=== PATIENT | male | born 1980 | race Caucasian/White ===

== ENCOUNTER 2023-02-09 20:36 | Emergency (ER) | payer MEDICAID, SELFPAY ==
[2023-02-09 20:38] VITALS: BP 155/94; PULSE 93; RESP 18; TEMP 36.7; O2SAT 98; BMI 25.0
--- NOTE | 2023-02-09 20:56 | XR_ITS ---
PROCEDURE INFORMATION: Exam: XR Left Wrist Exam date and time: 02/09/2023 8:50 PM Age: 42 years old Clinical indication: Pain; Wrist; Left TECHNIQUE: Imaging protocol: Radiologic exam of the left wrist. Views: 3 or more views. COMPARISON: No relevant prior studies available. FINDINGS: Bones/joints: No evidence of acute fracture or dislocation. No erosive disease. No significant degenerative change within the wrist. 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 Soft tissues: Normal. IMPRESSION: No acute bony abnormality. No significant arthropathy in the wrist.
--- NOTE | 2023-02-09 21:40 | HMH.EDEXTP ---
Discharge Plan Disposition Patient Disposition: Home, Self-Care Prescriptions Prescriptions: New ibuprofen 600 mg tablet 600 mg PO Q6H PRN (Reason: pain) Qty: 40 0RF acetaminophen [Tylenol 8 Hour] 650 mg tablet extended release 650 mg PO Q8H PRN (Reason: fever or pain) Qty: 40 0RF Referrals Follow up/Referrals: Lo Fernández [Primary Care Provider] - See instructions Activity Restrictions/Add. Instructions Additional Instructions/Restrictions: Wear the left wrist splint at all times. Follow-up with your primary care doctor as an outpatient Clinical Impressions Clinical Impression: Left wrist tendinitis Discharge ED Provider: Jenna Danielson Extremity Problem HPI General Chief complaint: Extremity Injury, Upper Stated complaint: [id number] left wrist pain,home accident Time Seen by Provider: 02/09/23 20:45 Mode of Arrival: Ambulatory Source of Information: Patient Limitations: No Limitations Description of Symptoms (Recalled from ER Triage Doc. by RN): Pt arrives to ED with c/o intermittent left wrist pain that started 2-3 days ago. Pt stated he has taken ibuprofen and tylenol, but pain has worsened today. Denies trauma. History of Present Illness HPI Narrative: Patient is a 42-year-old male who is here secondary to left wrist pain. 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 He stated the pain started last week and is gotten progressively worse. He wanted to make sure there was no fracture. Palpation movement makes it worse and rest makes it better MD Complaint: extremity pain Onset (ago): week(s) Consistency: constant Location: left Severity scale (1-10): 6 Quality: stabbing and sharp Radiation: distal Relieving factors: nothing Exacerbating factors: range of motion and palpation Associated symptoms: denies other symptoms Related Data Previous Rx's Medication Instructions Recorded acetaminophen 650 mg 650 mg PO Q8H PRN fever or pain 02/09/23 tablet,extended release (Tylenol 8 #40 tabs Hour) ibuprofen 600 mg tablet 600 mg PO Q6H PRN pain #40 tabs 02/09/23 Allergies Allergy/AdvReac Type Severity Reaction Status Date / Time ASA (aspirin) Allergy Mild I-HIVES Uncoded 09/21/17 15:13 PFSH PFS Disclaimer: The information contained in this section may have been updated after the patient was seen, as this information can be updated by other users. Social History Smoking Status: Current every day smoker alcohol intake: never current occupational status: employed Travel in the last 8 weeks: None ROS Obtained: Yes All systems reviewed & no additional complaints except as documented Musculoskeletal Musculoskeletal: Reports arthralgias (Left wrist pain) Physical Exam General General appearance: alert and in distress Head Head exam: atraumatic, normocephalic and normal inspection Eye Eye exam: Present normal appearance, PERRL and EOMI; Absent scleral icterus or conjunctival redness ENT ENT exam: Present normal exam, normal oropharynx and mucous membranes moist Neck Neck exam: Present normal inspection, full ROM and trachea midline Chest Chest inspection: Present normal inspection and symmetric chest wall rise Respiratory Respiratory exam: Present normal lung sounds bilaterally Cardiovascular Cardiovascular exam: Present regular rate, normal rhythm, normal heart sounds, +S1 and +S2 Abdominal Exam Abdominal exam: Present soft and normal bowel sounds; Absent distention, tenderness, guarding, rebound or rigidity Extremities Exam Extremities exam: Present normal inspection, tenderness (Left wrist diffuse tenderness mostly on the ulnar styloid and lateral aspect the wrist. Good range of motion. Pulses and neurovascular intact) and normal capillary refill; Absent full ROM, edema, joint swelling, calf tenderness, clubbing or cyanosis Back Exam Back exam: Present normal inspection and full ROM; Absent tenderness, CVA tenderness (R) or
[2023-02-09 21:41] VITALS: BP 151/74; PULSE 90; RESP 18; TEMP 36.7; O2SAT 98
== END 2023-02-09 21:43 | disposition home or self-care (01) ==
PROVIDERS: Emergency Provider Emergency Medicine; PCP Family Medicine
DX: M67.834 Other specified disorders of tendon, left wrist (principal); X50.3XXA Overexertion from repetitive movements, initial encounter; F17.200 Nicotine dependence, unspecified, uncomplicated
CPT/HCPCS: 73110; 99283; 99284

== ENCOUNTER 2023-03-25 13:17 | Emergency (ER) | payer MEDICAID, SELFPAY ==
[2023-03-25 13:20] VITALS: BP 157/94; PULSE 88; RESP 20; TEMP 36.7; O2SAT 98; BMI 25.9
--- NOTE | 2023-03-25 13:22 | XR_ITS ---
FINAL REPORT CLINICAL HISTORY: fall, lt lower leg pain COMPARISON: None FINDINGS: 2 views of the left tibia/fibula were obtained. There is no acute fracture or dislocation. The joint spaces are intact. There is no soft tissue abnormality. IMPRESSION: No acute fracture Reviewed, Interpreted and Dictated by Karl Danielle MD Transcribed by Cande Espinoza Authenticated and [facility]
--- NOTE | 2023-03-25 13:40 | EXP.UTC ---
Discharge Plan Disposition Patient Disposition: Home, Self-Care Condition: Good Referrals Follow up/Referrals: Sebastien Vasquez JR, MD [Physician] - See instructions Lo Fernández [Primary Care Provider] - See instructions Activity Restrictions/Add. Instructions Additional Instructions/Restrictions: Rest the extremity, apply ice for 15 minutes as tolerated three or four times per day, Wear the neil wrap for compression, Elevate the extremity as tolerated while you are resting. Follow up with Dr. Vasquez (orthopedics) if you continue to have symptoms. I put in a referral but you need to call his office and schedule an appointment. Follow up with your regular doctor. GO TO THE ER FOR ANY WORSENING SYMPTOMS Clinical Impressions Clinical Impression: Contusion of leg, left, Left leg pain Instructions Patient Instructions: How to Use Crutches, DI for Contusion Discharge ED Provider: Alirio Adams [facility] General Stated complaint: Fall 03/24 LT leg pain Mode of Arrival: Ambulatory Source of Information: Patient Limitations: No Limitations Time Seen by Provider: 03/25/23 13:40 HEENT Symptoms (Recalled from RN notes): No Resp Symptoms (Recalled from RN notes): No Skin Symptoms (Recalled from RN notes): No MS Symptoms (Recalled from RN notes): Yes Functional Status (Recalled from RN notes): WNL History of Present Illness Provider Complaint: PATIENT C/O PAIN TO LEFT LOWER LEG AFTER FALLING YESTERDAY EVENING AND INJURING IT. KNOT NOTED BELOW KNEE. HE STATES PAIN RADIATES DOWN LEG Related Data Allergies Allergy/AdvReac Type Severity Reaction Status Date / Time aspirin Allergy Verified 03/25/23 13:30 ceftriaxone [From Rocephin] Allergy Verified 03/25/23 13:30 Worker's Comp Is this a Worker's Comp case?: No [facility] Disclaimer: The information contained in this section may have been updated after the patient was seen, as this information can be updated by other users. Medical History Anxiety Asthma Hypertension Tuberculosis Social History Smoking Status: Current every day smoker alcohol intake: never current occupational status: employed Travel in the last 8 weeks: None ROS Obtained: Yes All systems reviewed & no additional complaints except as documented Constitutional Constitutional: Denies chills and Denies fever(s) Eyes Eyes: Denies eye discharge ENT Ears, Nose, Mouth, and Throat: Denies dizziness, Denies otalgia and Denies sore throat Cardiovascular Cardiovascular: Denies chest pain Respiratory Respiratory: Denies shortness of breath, Denies chest congestion, Denies cough, Denies stridor and Denies wheezing Gastrointestinal Gastrointestingal: Denies nausea or vomiting Musculoskeletal Musculoskeletal: Reports as per HPI Integumentary/Breasts Skin/Breast: Reports as per HPI Neurologic Neurologic: Denies dizziness and Denies paresthesias Allergic/Immunologic Allergic/Immunologic: Denies wheezing Physical Exam General General appearance: alert and in no apparent distress Head Head exam: atraumatic, normocephalic and normal inspection Eye Eye exam: Present normal appearance, PERRL and EOMI ENT ENT exam: Present normal exam, normal oropharynx, mucous membranes moist, TM's normal bilaterally and normal external ear exam Neck Neck exam: Present normal inspection, full ROM and trachea midline; Absent meningismus or lymphadenopathy Chest Chest inspection: Present normal inspection and symmetric chest wall rise; Absent tenderness Respiratory Respiratory exam: Present normal lung sounds bilaterally; Absent respiratory distress Cardiovascular Cardiovascular exam: Present regular rate and normal rhythm; Absent JVD Abdominal Exam Abdominal exam: Present soft and normal bowel sounds; Absent distention, tenderness or guarding Extremities Exam Extremities exam: Present normal inspection, full RO
[2023-03-25 14:00] VITALS: BP 157/94; PULSE 88; RESP 20; TEMP 36.7; O2SAT 98
== END 2023-03-25 14:09 | disposition home or self-care (01) ==
PROVIDERS: Emergency Provider Nurse Practitioner Family; PCP Family Medicine
DX: M79.605 Pain in left leg (principal); S80.12XA Contusion of left lower leg, initial encounter; F17.210 Nicotine dependence, cigarettes, uncomplicated; I10 Essential (primary) hypertension; J45.909 Unspecified asthma, uncomplicated; F41.9 Anxiety disorder, unspecified; W19.XXXA Unspecified fall, initial encounter
CPT/HCPCS: 73590; 99204; 99212; G0463

== ENCOUNTER 2023-10-22 11:19 | Emergency (ER) | payer OTHER, MEDICAID, SELFPAY ==
[2023-10-22 11:30] VITALS: BP 141/90; PULSE 80; RESP 19; TEMP 36.6; O2SAT 100; BMI 30.1
--- NOTE | 2023-10-22 11:36 | EXP.UTC ---
Discharge Plan Disposition Patient Disposition: Home, Self-Care Condition: Good Prescriptions Prescriptions: New meknykaiccqyfzi-onzfmsnsd-PN [Bromfed DM] 2-30-10 mg/5 mL syrup 5 ml PO Q4H PRN (Reason: Cough) Qty: 120 0RF ondansetron 8 mg tablet,disintegrating 8 mg PO TID PRN (Reason: Nausea) Qty: 30 0RF Referrals Follow up/Referrals: Lo Fernández [Primary Care Provider] - See instructions Clinical Impressions Clinical Impression: Close exposure to 2019-nCoV Stand Alone Forms Stand Alone Forms: Work/School Release Instructions Patient Instructions: DI for COVID-19 (Suspected or Confirmed ) Discharge ED Provider: Linda Angel [facility] [place] General Stated complaint: weak, fever, chills Time Seen by Provider: 10/22/23 11:40 History of Present Illness Provider Complaint: Patient had acute onset of weakness, fever, body aches and chills around 1 am. He felt fine when he went to work then felt like he got hit by a truck. His fiance has COVID19. No vomiting or diarrhea. Onset (ago): hour(s) (10) Related Data Previous Rx's Medication Instructions Recorded inzuqkhpufrtvyf-uxdqlasdajdqpeg-FJ 5 ml PO Q4H PRN Cough #120 mL 10/22/23 2 mg-30 mg-10 mg/5 mL oral syrup (Bromfed DM) ondansetron 8 mg disintegrating 8 mg PO TID PRN Nausea #30 tabs 10/22/23 tablet Allergies Allergy/AdvReac Type Severity Reaction Status Date / Time aspirin Allergy Verified 03/25/23 13:30 ceftriaxone [From Rocephin] Allergy Verified 03/25/23 13:30 [facility] Disclaimer: The information contained in this section may have been updated after the patient was seen, as this information can be updated by other users. Medical History Anxiety Asthma Hypertension Tuberculosis Social History Smoking Status: Current every day smoker alcohol intake: never current occupational status: employed Travel in the last 8 weeks: None ROS Obtained: Yes All systems reviewed & no additional complaints except as documented Constitutional Constitutional: Reports body ache, Reports chills and Reports fever(s) Physical Exam General General appearance: alert and in no apparent distress Head Head exam: atraumatic, normocephalic and normal inspection Eye Eye exam: Present normal appearance, PERRL and EOMI ENT ENT exam: Present normal exam, normal oropharynx, mucous membranes moist, TM's normal bilaterally and normal external ear exam Neck Neck exam: Present normal inspection, full ROM and trachea midline; Absent meningismus or lymphadenopathy Chest Chest inspection: Present normal inspection and symmetric chest wall rise; Absent tenderness Respiratory Respiratory exam: Present normal lung sounds bilaterally; Absent respiratory distress Cardiovascular Cardiovascular exam: Present regular rate and normal rhythm; Absent JVD Abdominal Exam Abdominal exam: Present soft and normal bowel sounds; Absent distention, tenderness or guarding Extremities Exam Extremities exam: Present normal inspection, full ROM and normal capillary refill; Absent calf tenderness Back Exam Back exam: Present normal inspection; Absent tenderness Neurological Exam Neurological exam: Present alert and oriented X3 Psychiatric Psychiatric exam: Present normal affect and normal mood Skin Skin exam: Present warm, dry, intact and normal color Lymphatic Lymphatic Findings: no adenopathy Medical Decision Making Jasson Inquiry Pt receiving controlled substance: No Lab Data Lab results reviewed: Yes I reviewed the patient's lab results.
[2023-10-22 11:54] VITALS: BP 141/90; PULSE 80; RESP 19; TEMP 36.6; O2SAT 100
[2023-10-22 11:58] LABS: UTC Influenza A Antigen Negative (Negative)
[2023-10-22 11:59] LABS: UTC Influenza B Antigen Negative (Negative)
== END 2023-10-22 12:04 | disposition home or self-care (01) ==
PROVIDERS: Emergency Provider Physician Assistant; PCP Family Medicine
DX: R05.9 Cough, unspecified (principal); R50.9 Fever, unspecified; R53.1 Weakness; R11.0 Nausea; M79.18 Myalgia, other site; F17.210 Nicotine dependence, cigarettes, uncomplicated; Z20.822 Contact with and (suspected) exposure to COVID-19
CPT/HCPCS: 87635; 87804; 99212; 99214; G0463

== ENCOUNTER 2023-11-14 08:36 | Emergency (ER) | payer MEDICAID, SELFPAY ==
--- NOTE | 2023-11-14 09:05 | EXP.UTC ---
Discharge Plan Disposition Patient Disposition: Home, Self-Care Condition: Good Prescriptions Prescriptions: New prednisone 10 mg tablet 10 mg PO BID 3 Days Qty: 6 0RF benzonatate [benzonatate] 100 mg capsule 100 mg PO TIDP PRN (Reason: Cough) Qty: 30 0RF amoxicillin-pot clavulanate 875-125 mg Tablet 1 tab PO Q12H Qty: 20 0RF No Action vuuwixprslahtwb-glzanbmka-XG [Bromfed DM] 2-30-10 mg/5 mL syrup 5 ml PO Q4H PRN (Reason: Cough) Qty: 120 0RF ondansetron 8 mg tablet,disintegrating 8 mg PO TID PRN (Reason: Nausea) Qty: 30 0RF Referrals Follow up/Referrals: Lo Fernández [Primary Care Provider] - See instructions Activity Restrictions/Add. Instructions Additional Instructions/Restrictions: Drink plenty of fluids. Take tylenol or ibuprofen for pain or fever. Take the medications as directed. Follow up with your regular doctor. GO TO THE ER FOR ANY WORSENING SYMPTOMS Clinical Impressions Clinical Impression: Pharyngitis Instructions Patient Instructions: Sore Throat, DI for Pharyngitis/Tonsillopharyngitis -- Adult Discharge ED Provider: Alirio Adams [facility] General Stated complaint: ba congestion st [place] fever Time Seen by Provider: 11/14/23 09:05 History of Present Illness Provider Complaint: He states that for the past 2 days he has had a very sore throat, chills, and low grade fever. Related Data Previous Rx's Medication Instructions Recorded deypzjhnvfnxgan-phodvbofkcwrweu-DQ 5 ml PO Q4H PRN Cough #120 mL 10/22/23 2 mg-30 mg-10 mg/5 mL oral syrup (Bromfed DM) ondansetron 8 mg disintegrating 8 mg PO TID PRN Nausea #30 tabs 10/22/23 tablet amoxicillin 875 mg-potassium 1 tab PO Q12H #20 tabs 11/14/23 clavulanate 125 mg tablet benzonatate 100 mg capsule 100 mg PO TIDP PRN Cough #30 caps 11/14/23 prednisone 10 mg tablet 10 mg PO BID 3 days #6 tabs 11/14/23 Allergies Allergy/AdvReac Type Severity Reaction Status Date / Time aspirin Allergy Verified 03/25/23 13:30 ceftriaxone [From Rocephin] Allergy Verified 03/25/23 13:30 [facility] Disclaimer: The information contained in this section may have been updated after the patient was seen, as this information can be updated by other users. Medical History Anxiety Asthma Hypertension Tuberculosis Social History Smoking Status: Current every day smoker alcohol intake: never current occupational status: employed Travel in the last 8 weeks: None ROS Obtained: Yes All systems reviewed & no additional complaints except as documented Constitutional Constitutional: Reports chills and Reports fever(s) Eyes Eyes: Denies eye discharge ENT Ears, Nose, Mouth, and Throat: Reports as per HPI Cardiovascular Cardiovascular: Denies chest pain Respiratory Respiratory: Denies chest congestion and Reports cough Gastrointestinal Gastrointestingal: Reports nausea; Denies abdominal pain, constipation, cramping, diarrhea or vomiting Musculoskeletal Musculoskeletal: Denies arthralgias Integumentary/Breasts Skin/Breast: Denies rash Neurologic Neurologic: Denies paresthesias Physical Exam General General appearance: alert and in no apparent distress Head Head exam: atraumatic, normocephalic and normal inspection Eye Eye exam: Present normal appearance, PERRL and EOMI ENT ENT exam: Present mucous membranes moist and normal external ear exam Expanded ENT Exam TM/Canal exam: Bilateral TM: erythema and bulging Nose exam: Absent sinus tenderness Mouth exam: Present normal external inspection; Absent drooling Teeth exam: Present normal inspection Throat exam: Present tonsillar erythema, tonsillomegaly and tonsillar exudate Neck Neck exam: Present normal inspection, full ROM and trachea midline; Absent tenderness, meningismus or lymphadenopathy Chest Chest inspection: Present normal inspection and symmetric chest wall rise; Absent tenderness Respiratory Respiratory exam: Present normal lung sounds bilaterally; Absent respiratory distress, wheezes, stridor or accessory muscle use Cardiovascular Cardiovascular exam: Present regular rate and normal rhythm; Absent systolic murmur or diastolic murmur Abdominal Exam Abdominal exam: Present soft and normal bowel sounds; Absent distention, tenderness, guarding, rebound or rigidity Extremities Exam Extremities exam: Present normal inspection and normal capillary refill; Absent calf tenderness Back Exam Back exam: Present normal inspection and full ROM; Absent tenderness, CVA tenderness (R) or CVA tenderness (L) Neurological Exam Neurological exam: Present alert, oriented X3 and CN II-XII intact Psychiatric Psychiatric exam: Present normal affect and normal mood Skin Skin exam: Present warm, dry, intact and normal color Medical Decision Making Medical Records Medical records reviewed: No I reviewed the patient's medical records. Jasson Inquiry Pt receiving controlled substance: No Lab Data Lab results reviewed: Yes I reviewed the patient's lab results.
[2023-11-14 09:10] VITALS: BP 127/84; PULSE 83; RESP 16; TEMP 36.7; O2SAT 98; BMI 25.7
[2023-11-14 09:32] LABS: UTC Strep Screen (Rapid) Negative (Negative)
[2023-11-14 09:33] LABS: UTC Influenza A Antigen Negative (Negative)
[2023-11-14 09:34] LABS: UTC Influenza B Antigen Negative (Negative)
[2023-11-14 09:41] VITALS: BP 127/84; PULSE 83; RESP 16; TEMP 36.7; O2SAT 98
== END 2023-11-14 09:42 | disposition home or self-care (01) ==
PROVIDERS: Emergency Provider Nurse Practitioner Family; PCP Family Medicine
DX: J02.9 Acute pharyngitis, unspecified (principal); R50.9 Fever, unspecified; F17.210 Nicotine dependence, cigarettes, uncomplicated
CPT/HCPCS: 87804; 87880; 99212; 99214; G0463

== ENCOUNTER 2023-11-16 17:12 | Emergency (ER) | payer MEDICAID, SELFPAY ==
[2023-11-16 18:25] VITALS: BP 138/85; PULSE 94; RESP 19; TEMP 36.5; O2SAT 98; BMI 28.6
[2023-11-16 18:31] LABS: UTC Influenza A Antigen Negative (Negative)
--- NOTE | 2023-11-16 18:45 | ED_ITS ---
Discharge Plan Disposition Patient Disposition: Home, Self-Care Condition: Good Prescriptions Prescriptions: New oseltamivir [Tamiflu] 75 mg capsule 75 mg PO Q12H 5 Days Qty: 10 0RF oqfcpavgqlgyxsx-ywzysaxxi-WY [Bromfed DM] 2-30-10 mg/5 mL Syrup 10 ml PO Q4H PRN (Reason: Cough) Qty: 240 0RF Referrals Follow up/Referrals: Lo Fernández [Primary Care Provider] - See instructions Activity Restrictions/Add. Instructions Additional Instructions/Restrictions: * Start Tamiflu today if you are going to take it. Discussed risk and possible benefits. * Lots of rest * Increase Fluids water, Gatorade, powerade, pedialyte,if infant/toddler/child * Alternate Tylenol and / or ibuprofen as discussed for fever, aches, chills Follow up IMMEDIATELY with your family doctor for new or worsening Symptoms OR no noticeable improvement over the next 48-72 hours, 911 for difficulty or breathing * You or your child area contagious until no fever, aches, chills for 24 hours with medication for symptoms * Help Prevent the spread of influenza: * ?Wash your hands often. Use soap and water. Wash your hands after you use the bathroom, change a child's diapers, or sneeze. Wash your hands before you prepare or eat food. Use gel hand cleanser that has 60% alcohol, when soap and water are not available. Do not touch your eyes, nose, or mouth unless you have washed your hands first. * Cover your mouth when you sneeze or cough. Cough into a tissue or the bend of your arm. If you use a tissue, throw it away immediately and wash your hands. * Clean shared items with a germ-killing bin cleaner. Clean table surfaces, doorknobs, and light switches. Do not share towels, silverware, and dishes with people who are sick. Wash bed sheets, towels, silverware, and dishes with soap and water. * Wear a mask over your mouth and nose if you are sick. The face mask may help protect others from becoming infected with the flu. Wear the mask when in common areas of your home or if you seek care with a healthcare provider. * Stay away from others if you are sick. Stay at home until 24 hours after your fever and symptoms are gone. Clinical Impressions Clinical Impression: Influenza Stand Alone Forms Stand Alone Forms: Work/School Release Instructions Patient Instructions: DI for Influenza -- Adult Discharge ED Provider: Zoey Merritt [facility] [place] General Stated complaint: SOA,hurt in back , fever Mode of Arrival: Ambulatory Source of Information: Patient Limitations: No Limitations Time Seen by Provider: 11/16/23 18:46 Description of Symptoms (Recalled from Triage Doc. by RN): PATIENT C/O SOA, FEVER, COUGH AND SORE THROAT X 2 DAYS HEENT Symptoms (Recalled from RN notes): Yes Resp Symptoms (Recalled from RN notes): Yes Skin Symptoms (Recalled from RN notes): No MS Symptoms (Recalled from RN notes): No Functional Status (Recalled from RN notes): WNL History of Present Illness Provider Complaint: Patient states that he has been having cough, headache, body aches, chills, and cough States that he his currently on antibiotics but his son tested positive for the flu last night and he was feeling worse today so he thinks he may have flu now Related Data Previous Rx's Medication Instructions Recorded tevjzqlcciwloiq-wbeogrmrbkqhxdf-OC 10 ml PO Q4H PRN Cough #240 mL 11/16/23 2 mg-30 mg-10 mg/5 mL oral syrup (Bromfed DM) oseltamivir 75 mg capsule (Tamiflu) 75 mg PO Q12H 5 days #10 caps 11/16/23 Allergies Allergy/AdvReac Type Severity Reaction Status Date / Time aspirin Allergy Verified 03/25/23 13:30 ceftriaxone [From Rocephin] Allergy Verified 03/25/23 13:30 Worker's Comp Is this a Worker's Comp case?: No [facility] Disclaimer: The information contained in this section may have been updated after the patient was seen, as this information can be updated by other users. Medical History Anxiety Asthma Hypertension Tuberculosis Social History Smoking Status: Current every day smoker alcohol intake: never current occupational status: employed Travel in the last 8 weeks: None ROS Obtained: Yes All systems reviewed & no additional complaints except as documented and Yes Systems reviewed as appropriate & no additional complaints except as documented Constitutional Constitutional: Reports system reviewed and no additional complaints, except as documented, Reports as per HPI, Reports body ache, Reports chills, Reports fever(s) and Reports headache(s) ENT Ears, Nose, Mouth, and Throat: Reports system reviewed and no additional complaints, except as documented, Reports as per HPI, Reports headache(s) and Reports nasal congestion Cardiovascular Cardiovascular: Reports system reviewed and no additional complaints, except as documented and Reports as per HPI Respiratory Respiratory: Reports system reviewed and no additional complaints, except as documented, Reports as per HPI, Reports shortness of breath (at times after coughing fit), Denies chest congestion, Reports cough and Denies wheezing Gastrointestinal Gastrointestingal: Reports system reviewed and no additional complaints, except as documented and as per HPI Genitourinary Male Genitourinary: Reports system reviewed and no additional complaints, except as documented and Reports as per HPI Musculoskeletal Musculoskeletal: Reports system reviewed and no additional complaints, except as documented and Reports as per HPI Neurologic Neurologic: Reports headache(s) Allergic/Immunologic Allergic/Immunologic: Denies wheezing Physical Exam General General appearance: alert and in no apparent distress ENT ENT exam: Present mucous membranes moist Respiratory Respiratory exam: Present normal lung sounds bilaterally; Absent respiratory distress or wheezes Cardiovascular Cardiovascular exam: Present regular rate, normal rhythm and normal heart sounds Abdominal Exam Abdominal exam: Present soft and normal bowel sounds; Absent distention or tenderness Neurological Exam Neurological exam: Present alert, oriented X3 and normal gait Medical Decision Making Jasson Inquiry Pt receiving controlled substance: No Jasson was queried for this patient: No Vital Signs: 11/16/23 18:25 Temperature 97.7 F Temperature Source Oral Pulse Rate [Left Brachial] 94 H Respiratory Rate 19 Blood Pressure [Left Arm] 138/85 Blood Pressure Mean [Left Arm] 102 Blood Pressure Source [Left Arm] Automatic Cuff Blood Pressure Position [Left Arm] Sitting 02 Sat by Pulse Oximetry 98 Oxygen Delivery Method Room Air Lab Data Lab results reviewed: Yes I reviewed the patient's lab results. Lab Results 11/16/23 18:29: Influenza Type A Ag Negative, Influenza Type B Ag Negative
[2023-11-16 18:50] LABS: UTC Influenza B Antigen Positive (Negative)
[2023-11-16 19:01] VITALS: BP 138/85; PULSE 94; RESP 19; TEMP 36.5; O2SAT 98
== END 2023-11-16 19:05 | disposition home or self-care (01) ==
PROVIDERS: Emergency Provider Nurse Practitioner; PCP Family Medicine
DX: J10.1 Influenza due to other identified influenza virus with other respiratory manifestations (principal); R05.9 Cough, unspecified; R51.9 Headache, unspecified; R50.9 Fever, unspecified; R09.81 Nasal congestion; F17.210 Nicotine dependence, cigarettes, uncomplicated; I10 Essential (primary) hypertension; J45.909 Unspecified asthma, uncomplicated
CPT/HCPCS: 87804; 99212; 99214; G0463

== ENCOUNTER 2023-11-19 01:01 | Emergency (ER) | payer MEDICAID, SELFPAY ==
[2023-11-19 01:14] VITALS: BP 138/89; PULSE 71; RESP 20; TEMP 36.4; O2SAT 99; BMI 27.8
--- NOTE | 2023-11-19 01:29 | HMH.EDGENADL ---
Discharge Plan Disposition Patient Disposition: Home, Self-Care Condition: Good Prescriptions Prescriptions: New cetirizine [Zyrtec] 10 mg tablet 10 mg PO DAILY Qty: 30 0RF No Action oseltamivir [Tamiflu] 75 mg capsule 75 mg PO Q12H 5 Days Qty: 10 0RF vlgvgzuvvurbjdl-gedijiffs-IC [Bromfed DM] 2-30-10 mg/5 mL Syrup 10 ml PO Q4H PRN (Reason: Cough) Qty: 240 0RF Referrals Follow up/Referrals: Lo Fernández [Primary Care Provider] - See instructions Activity Restrictions/Add. Instructions Additional Instructions/Restrictions: You were evaluated in the emergency department today. Take Tylenol and ibuprofen at home as needed for pain. Expect that your symptoms will persist for several days. 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 Use the Flonase provided to you twice a day. Complete the course of antibiotics provided to you by urgent treatment center. Return to the emergency department for new or worsening symptoms. Clinical Impressions Clinical Impression: Acute viral sinusitis Instructions Patient Instructions: Sinus Headache, DI for Sinusitis Discharge ED Provider: Mae Nelson General Adult HPI General Chief complaint: Upper Respiratory Infection Stated complaint: flu +, tabatha Time Seen by Provider: 11/19/23 01:10 Mode of Arrival: Ambulatory Source of Information: Patient Limitations: No Limitations Description of Symptoms (Recalled from ER Triage Doc. by RN): Pt reports URI sx starting 11/11. Pt was seen in [facility] on 11/14 and was given antibiotics for possible laryngitis/tonsilitis. Pt reports worsening sx, so went back to [facility] on the 11/16 and was dx with the flu. Pt to ED tonight with C/O worsening sinus pressure . Pt reports pain on right side of face and right ear. Pt took 600mg Ibuprofen before arrival. History of Present Illness HPI narrative: This patient is a 43-year-old male with recent diagnosis of the flu presenting to the emergency department for evaluation with concern for sinus pain and clear nasal drainage. Patient reports that he was seen at urgent treatment center on 11/14/2023 after onset of symptoms, and he was swabbed for strep, which was negative. On medical record review, though his strep swab was negative, he was prescribed amoxicillin for pharyngitis. His symptoms persisted, so he was evaluated again in [facility] on 11/16/2023, at which point he tested positive for the flu B. He states that since then, he has had worsening sinus pressure and clear sinus drainage. He has still been taking his amoxicillin. No other concerns or complaints, such as double vision, blurred vision, or other issues. Related Data Previous Rx's Medication Instructions Recorded lkedmymhjovlvsu-ytnlgcculavfbhb-TV 10 ml PO Q4H PRN Cough #240 mL 11/16/23 2 mg-30 mg-10 mg/5 mL oral syrup (Bromfed DM) oseltamivir 75 mg capsule (Tamiflu) 75 mg PO Q12H 5 days #10 caps 11/16/23 cetirizine 10 mg tablet (Zyrtec) 10 mg PO DAILY #30 tabs 11/19/23 Allergies Allergy/AdvReac Type Severity Reaction Status Date / Time aspirin Allergy Verified 03/25/23 13:30 ceftriaxone [From Rocephin] Allergy Verified 03/25/23 13:30 [facility] Disclaimer: The information contained in this section may have been updated after the patient was seen, as this information can be updated by other users. Medical History Anxiety Asthma Hypertension Tuberculosis Social History Smoking Status: Current every day smoker alcohol intake: never current occupational status: employed Travel in the last 8 weeks: None ROS Obtained: Yes All systems reviewed & no additional complaints except as documented Physical Exam General General appearance: alert and in no apparent distress Head Head exam: atraumatic and normocephalic Eye Eye exam: Present normal appearance, PERRL and EOMI ENT ENT exam: Present normal exam, normal oropharynx, mucous membranes moist and normal external ear exam Neck Neck exam: Present normal inspection, full ROM and trachea midline; Absent tenderness Chest Chest inspection: Present normal inspection and symmetric chest wall rise; Absent tenderness Respiratory Respiratory exam: Present normal lung sounds bilaterally; Absent respiratory distress, wheezes, stridor or accessory muscle use Cardiovascular Cardiovascular exam: Present regular rate and normal rhythm Abdominal Exam Abdominal exam: Present soft; Absent distention, tenderness or guarding Extremities Exam Extremities exam: Present normal inspection, full ROM and normal capillary refill; Absent tenderness or edema Back Exam Back exam: Present normal inspection and full ROM; Absent tenderness Neurological Exam Neurological exam: Present alert, oriented X3, CN II-XII intact and normal gait; Absent motor sensory deficit Psychiatric Psychiatric exam: Present normal affect and normal mood Skin Skin exam: Present warm and dry Medical Decision Making Medical Records Medical records reviewed: Yes I reviewed the patient's medical records. Jasson Inquiry Pt receiving controlled substance: No Vital Signs: 11/19/23 01:14 Temperature 97.6 F Temperature Source Oral Pulse Rate [Left Radial] 71 Respiratory Rate 20 Blood Pressure [Right Arm] 138/89 Blood Pressure Mean [Right Arm] 105 Blood Pressure Source [Right Arm] Automatic Cuff Blood Pressure Position [Right Arm] Sitting 02 Sat by Pulse Oximetry 99 Oxygen Delivery Method Room Air Lab Data Lab results reviewed: Yes I reviewed the patient's lab results. Orders (Tests/Meds): ED MEDICATIONS Generic Name Dose Route Start Last Admin Trade Name Freq PRN Reason Stop Dose Admin Fluticasone Propionate 1 spray 11/19/23 01:30 Fluticasone Prop 50mcg Nasal [place] 16gm NS 12/19/23 01:29 BID STEPHANY Medical Decision Narrative: In summary, this patient is a 43-year-old male presenting to the Emergency Department for evaluation of sinus pain and clear nasal drainage in the setting of the flu. Differential diagnoses considered include but are not limited to viral sinusitis, bacterial sinusitis, otitis. Ruling out the most morbid conditions drove assessment. On exam, the patient is well-appearing. He has sinus pain and pressure, but no neurologic deficits or ocular symptoms. He knows that he has the flu. He is already also taking amoxicillin for pharyngitis, which was prescribed by the [facility]. I feel based on his clinical symptoms, the fact that he is positive for flu B, the fact that he is not having purulent drainage, and the fact that his symptoms have not been persistent for very long, he likely has viral sinusitis. I advised that he can complete the course of antibiotics that was prescribed to him, however I do not feel that this would change control coordinator. I gave her instructions for supportive management of viral sinusitis, including Flonase here and a prescription for Zyrtec. He was given instructions for close follow-up with his primary care provider and strict return precautions. He was discharged in stable condition after all questions were answered. Critical Care Critical Care Time Critical Care Time: No
[2023-11-19] MEDS: FLUTICASONE PROP 50MCG NASAL SPRAY 16GM 1 SPRAY NS (01:43)
[2023-11-19 02:05] VITALS: BP 129/87; PULSE 67; RESP 18; TEMP 36.4; O2SAT 99
== END 2023-11-19 02:05 | disposition home or self-care (01) ==
PROVIDERS: Emergency Provider Emergency Medicine; PCP Family Medicine
DX: J01.90 Acute sinusitis, unspecified (principal); B34.9 Viral infection, unspecified; F17.210 Nicotine dependence, cigarettes, uncomplicated
CPT/HCPCS: 99283